=== PATIENT | male | born 2000 | race Caucasian/White ===

== ENCOUNTER 2020-06-20 15:43 | Outpatient (REF) | payer OTHER, SELFPAY | END 2020-06-20 15:44 | disposition home or self-care (01) | LOC: HO.LAB 15:43 | PROVIDERS: Visit Provider Internal Medicine | DX: Z20.828 Contact with and (suspected) exposure to other viral communicable diseases (principal) | CPT/HCPCS: C9803; U0003 ==

== ENCOUNTER 2021-01-06 14:02 | Emergency (ER) | payer OTHER, SELFPAY ==
--- NOTE | ~2021-01-06 | XR_ITS ---
EXAMINATION: RIGHT HAND/WRIST CLINICAL INFORMATION: Finger injury. COMPARISON: None TECHNIQUE: 4 views FINDINGS: There is a comminuted phalangeal tuft fracture of distal phalanx second digit with minimal soft tissue swelling. No additional bony abnormality seen. Rest of finger is unremarkable. XR/XR hand wrist RT IMPRESSION: Comminuted nondisplaced fracture phalangeal tuft second digit with mild soft tissue swelling.
[2021-01-06 14:15] VITALS: BP 112/61; PULSE 69; RESP 18; TEMP 36.7; O2SAT 100; BMI 22.2
[2021-01-06] MEDS: Lidocaine HCl 1 % MPF 5 ML VIAL SUBCUT ×2 (15:12)
--- NOTE | 2021-01-06 16:36 | ED.EXTPRO ---
HPI - Extremity Problem General Chief complaint: Extremity Injury, Upper Stated complaint: FINGER INJ Time Seen by Provider: 01/06/21 15:03 History of Present Illness HPI Narrative: Patient complains of right index finger pain after he slammed the finger tip in a car door yesterday Related Data Allergies Allergy/AdvReac Type Severity Reaction Status Date / Time No Known Allergies Allergy Unverified 04/03/20 16:54 abilify Allergy Unknown Unknown Uncoded 01/06/21 15:00 Review of Systems Review of Systems: positive for right index finger pain Negatives are no fever no chills no neck pain no back pain no numbness weakness or tingling Yes all other systems are reviewed and are negative PMFSH Past Medical History Source: nursing notes reviewed Medical History (Updated 01/07/21 @ 00:01 by Sunil Daemrita) Depression Social History Social History Advance Directives: No Advance Directives Information Provided: Yes Physical Exam Vital Signs: Vital Signs: Last Vital Signs Temp 98.1 F 01/06/21 14:15 Pulse 69 01/06/21 14:15 Resp 18 01/06/21 14:15 BP 112/61 01/06/21 14:15 Pulse Ox 100 01/06/21 14:15 Body Mass Index 22.2 general appearance no acute distress Head normocephalic atraumatic Neck supple nontender Back full range of motion Right index finger has subungual hematoma and tenderness and swelling to the distal phalanx, no laceration, no deficit of flexion or extension, neurovascular intact, no laceration Other extremities normal Course Course Course Narrative: digital block was applied to the right index finger with 5 cc of 1% lidocaine with good results Multiple holes were drilled in the subungual hematoma with an 18 gauge needle with discharge of some of the clotted blood Discharge Plan Discharge Clinical Impression: Hematoma, subungual, finger, right, Closed fracture of tuft of distal phalanx of finger Patient Disposition: Home, Self-Care Additional Instructions: X-ray showed the bone in the finger tip is broken As there was lots of blood in the nail I made several small holes in the nail to release some of the blood and hopefully make you more comfortable Follow with hand doctor Return any time any worse condition or any concerns Referrals: Danyell Mcmillan MD [Physician] - 2 days (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
--- NOTE | 2021-01-06 16:38 | PC.NURSE ---
This PCT put a band Aid on patients finger over nail puncture wounds then place a finger splint on the pointer finger of the same left hand. wrapped and taped in place.
== END 2021-01-06 16:42 | disposition home or self-care (01) ==
PROVIDERS: Emergency Provider Emergency Medicine Emergency Medical Services; PCP Internal Medicine
DX: S62.630A Displaced fracture of distal phalanx of right index finger, initial encounter for closed fracture (principal); S60.121A Contusion of right index finger with damage to nail, initial encounter; W23.0XXA Caught, crushed, jammed, or pinched between moving objects, initial encounter; Y93.9 Activity, unspecified; Y92.9 Unspecified place or not applicable; Y99.9 Unspecified external cause status
CPT/HCPCS: 11740; 73110; 73130; 99283